=== PATIENT | female | born 1940 | race Two or more races ===

== ENCOUNTER 2018-12-05 12:33 | Emergency (ER) | payer MEDICARE, MEDICAID ==
[~2018-12-05] VITALS: Ht 152.4 cm; Wt 80.7 kg
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
--- NOTE | 2018-12-05 12:45 | NUR ---
DR RANDHAWA AT BEDSIDE
[2018-12-05] MEDS ORDERED: ONDANSETRON 4 MG TAB.RAPDIS PO ONE (13:00)
[2018-12-05] MEDS ORDERED: MORPHINE SULFATE INJ 2 MG/ML DISP.SYRIN IM ONE (13:00)
[2018-12-05] MEDS ORDERED: ONDANSETRON 4 MG TAB.RAPDIS ONE (13:01)
[2018-12-05] MEDS ORDERED: MORPHINE SULFATE INJ 4 MG/ML DISP.SYRIN ONE (13:01)
--- NOTE | 2018-12-05 13:53 | NUR ---
Patient discharged to home in stable condition. Written and verbal after care instructions given. Patient verbalizes understanding of instruction. Assisted to waaiting room. Pt will be picked-up by friend.
[2018-12-05 13:54] VITALS: BP 116/62
== END 2018-12-05 13:55 | disposition home or self-care (01) ==
LOC: ER 12:36
DX: M17.12 Unilateral primary osteoarthritis, left knee (principal); I10 Essential (primary) hypertension; F41.9 Anxiety disorder, unspecified; Z88.6 Allergy status to analgesic agent
CPT/HCPCS: 73564; 96372; 99283; J2270; Q0162

== ENCOUNTER 2020-03-22 10:07 | Inpatient (IN) | payer MEDICARE, OTHER ==
[2020-03-22] VITALS (11 sets, daily range): BP systolic 104–158; BP diastolic 29–75
[~2020-03-22] VITALS: Ht 152.4 cm; Wt 79.8 kg
[2020-03-22] MEDS ORDERED: OCTREOTIDE 100 MCG/ML VIAL ONE (10:29)
[2020-03-22] MEDS ORDERED: ONDANSETRON HCL/PF 4 MG/2 ML VIAL ONE (10:29)
[2020-03-22] MEDS ORDERED: PANTOPRAZOLE 40 MG VIAL ONE (10:29)
[2020-03-22] MEDS ORDERED: IV NS 0.9% 1,000 ML BAG IV ONE (10:30)
[2020-03-22] MEDS ORDERED: IV NS 0.9% 1,000 ML IV ONE (10:30)
[2020-03-22] MEDS ORDERED: ONDANSETRON HCL/PF 4 MG/2 ML VIAL IVP ONE (10:30)
[2020-03-22] MEDS ORDERED: OCTREOTIDE 50 MCG/ML AMPUL IV ONE (10:30)
[2020-03-22] MEDS ORDERED: PANTOPRAZOLE 40 MG VIAL IV ONE (10:30)
[2020-03-22 10:39] LABS: BASOPHILS % (AUTO) 0.1 % (0.0-2.0); HEMATOCRIT 32 % (33-45); HEMOGLOBIN 10.2 g/dL (11.5-14.8); LYMPHOCYTES # (AUTO) 2.3 /CMM (0.8-4.8); LYMPHOCYTES % (AUTO) 16.7 % (20.0-44.0); MEAN CORPUSCULAR HGB CONC 32 g/dl (31.0-36.0); MEAN CORPUSCULAR VOLUME 96 fL (82-100); MONOCYTES # (AUTO) 0.2 /CMM (0.1-1.30); MONOCYTES % (AUTO) 1.2 % (2.0-12.0); NEUTROPHILS # (AUTO) 11.4 /CMM (1.8-8.9); PLATELET COUNT (AUTO) 190 /CMM (150-450); RED BLOOD CELL COUNT(AUTO) 3.27 MIL/uL (4.0-5.2); WHITE BLOOD COUNT (AUTO) 13.9 K/uL (4.3-11.0)
--- NOTE | 2020-03-22 10:42 | NUR ---
BIB ra c/o nausea and vomiting bright red blood since this morning. On room air, breathing evenly and unlabored. connected to the monitor and pulse ox. kept comfortable, will continue to monitor accordingly.
[2020-03-22 10:44] LABS: CALCIUM, SERUM 8.2 mg/dL (8.5-10.1); CARBON DIOXIDE 26 mmol/L (21-32); CHLORIDE 105 mmol/L (98-107); CREATININE 1.6 mg/dL (0.6-1.3); GLUCOSE 235 mg/dL (74-106); POTASSIUM 4.1 mmol/L (3.5-5.1); SODIUM SERUM 142 mmol/L (136-145); UREA NITROGEN, BLOOD 44 mg/dL (7-18)
[2020-03-22 10:50] LABS: ALANINE AMINOTRANSFERASE 14 U/L (12-78); ALBUMIN 2.9 g/dL (3.4-5.0); ALKALINE PHOSPHATASE 43 U/L (46-116); ASPARTATE AMINOTRANSFERASE 15 U/L (15-37); BILIRUBIN,DIRECT 0.2 mg/dL (0.0-0.2); BILIRUBIN,TOTAL 0.5 mg/dL (0.2-1.0); LIPASE 124 U/L (73-393); TOTAL PROTEIN, SERUM 5.5 g/dL (6.4-8.2)
[2020-03-22] MEDS ORDERED: AMLO5TAB9 PO (10:59)
[2020-03-22] MEDS ORDERED: LINA290C PO (10:59)
[2020-03-22] MEDS ORDERED: LOSA100T31 PO (10:59)
[2020-03-22] MEDS ORDERED: ALLO300T2 PO (10:59)
[2020-03-22] MEDS ORDERED: LORA-259 PO (10:59)
[2020-03-22] MEDS ORDERED: CELE-85 PO (10:59)
[2020-03-22] MEDS ORDERED: ESCI20TA PO (10:59)
[2020-03-22] MEDS ORDERED: ROSU5TAB13 PO (10:59)
[2020-03-22] MEDS ORDERED: IV NS 0.9% 250 ML IV ONE (11:09)
[2020-03-22] MEDS ORDERED: IOHEXOL-300 100 ML VIAL IV ONE (11:09)
--- NOTE | 2020-03-22 11:09 | NUR ---
NURSING SUP GAVE ICU BED 253.
--- NOTE | 2020-03-22 11:09 | NUR ---
covid 19 testing collected and sent to lab
--- NOTE | 2020-03-22 11:15 | NUR ---
report given to Bonnie PARR for norman
[2020-03-22] MEDS ORDERED: Z GUARD REMEDY 2 OZ OINT TP PRN (11:30)
[2020-03-22] MEDS ORDERED: *INSULIN REGULAR(HUMULIN R)HUM 100 UNIT/ML VIAL SQ PRN (11:30)
[2020-03-22] MEDS ORDERED: MAG HYDROX/AL HYDROX/SIMETH 30 ML UDC PO PRN (11:30)
[2020-03-22] MEDS ORDERED: ACETAMINOPHEN 325 MG TABLET PO PRN (11:30)
[2020-03-22] MEDS ORDERED: DEXTROSE 50%-WATER 50 ML DISP.SYRIN IV PRN (11:30)
[2020-03-22] MEDS ORDERED: MAGNESIUM HYDROXIDE 30 ML UDC PO PRN (11:30)
--- NOTE | 2020-03-22 12:32 | NUR ---
wheeled patient via gurney accompanied by RN and emt in no distress. RN at bedside to assume care.
--- NOTE | 2020-03-22 12:57 | NUR ---
PT ARRIVED IN ICU AT 1230 VIA GURNEY, ACCOMPANIED BY WOOD INSPECTOR. PT WAS QUICKLY CLEANED UP OF DRIED BLOOD ON FACE, LEGS AND CHEST, HOME NIGHTGOWN WAS REMOVED AND HOSPITAL GOWN WAS PUT ON. CONSENTS WERE SIGNED FOR EGD AND PATIENT WAS TAKEN TO SURGERY AT 1257 BY OR STAFF INCLUDING CONCRETE TESTER.
--- NOTE | 2020-03-22 14:02 | NUR ---
PT RETURNED FROM SURGERY AT 1402. PT ALERT, RA, PT TALKING TO DAUGHTER ON PHONE
[2020-03-22] MEDS: IV NS 0.9% 1,000 ML IV PRN (14:29)
[2020-03-22] MEDS: HYDROCODONE/APAP 5/325MG TABLET PO PRN ×2 (14:58→19:44)
[2020-03-22] MEDS: BLOOD SUGAR DIAGNOSTIC 1 EACH STRIP VI SCH ×3 (15:04→21:04)
--- NOTE | 2020-03-22 19:30 | NUR ---
END OF SHIFT NOTE: NO BLEEDING NOTED ON THIS SHIFT. PT STARTED CLEAR LIQUID DIET FOR DINNER. PT CHECKED ON HOURLY AND PRN BY NURSING STAFF.
--- NOTE | 2020-03-22 20:56 | NUR ---
RN NOTE NOTED WITH ORDER FOR BLOOD TRANFUSION FROM ER. CLARIFIED WITH EDMUND DNP AND RELAYED CURRENT H/H AND EGD RESULT. PER DNP, DO NOT GIVE BLOOD TRANSFUSION. CALLED LAB AND SPOKE TO KIRAN WHO STATES THAT THEY WILL HOLD ONTO THE BLOOD FOR 72 HOURS
[2020-03-22] MEDS: PANTOPRAZOLE 40 MG VIAL IV SCH (21:04)
[2020-03-22] MEDS: LORAZEPAM 1 MG TABLET PO PRN (21:48)
[2020-03-23] VITALS (31 sets, daily range): BP systolic 87–142; BP diastolic 36–73
[2020-03-23] MEDS: IV NS 0.9% 1,000 ML IV PRN ×2 (02:17→14:59)
[2020-03-23] MEDS: HYDROCODONE/APAP 5/325MG TABLET PO PRN ×4 (02:22→20:29)
--- NOTE | 2020-03-23 04:00 | NUR ---
RN NOTE OFFERED PT COMPLETE BED BATH AND LINEN CHANGE. PT REFUSED AND STATED "NOT NOW, I AM SLEEPING." PT AGREED FOR PARTIAL LINEN CHANGE.
[2020-03-23 04:14] LABS: BASOPHILS % (AUTO) 0.1 % (0.0-2.0); HEMATOCRIT 24 % (33-45); HEMOGLOBIN 8.1 g/dL (11.5-14.8); LYMPHOCYTES # (AUTO) 2.1 /CMM (0.8-4.8); LYMPHOCYTES % (AUTO) 17.1 % (20.0-44.0); MEAN CORPUSCULAR HGB CONC 33 g/dl (31.0-36.0); MEAN CORPUSCULAR VOLUME 95 fL (82-100); MONOCYTES # (AUTO) 0.8 /CMM (0.1-1.30); MONOCYTES % (AUTO) 6.6 % (2.0-12.0); NEUTROPHILS # (AUTO) 9.2 /CMM (1.8-8.9); NEUTROPHILS % (AUTO) 76.2 % (43.0-81.0); PLATELET COUNT (AUTO) 146 /CMM (150-450); RED BLOOD CELL COUNT(AUTO) 2.56 MIL/uL (4.0-5.2); WHITE BLOOD COUNT (AUTO) 12.1 K/uL (4.3-11.0)
[2020-03-23 04:28] LABS: CALCIUM, SERUM 7.3 mg/dL (8.5-10.1); CREATININE 1.1 mg/dL (0.6-1.3); MAGNESIUM 2.3 mg/dL (1.8-2.4); PHOSPHORUS 3.4 mg/dL (2.5-4.9); POTASSIUM 4.4 mmol/L (3.5-5.1)
--- NOTE | 2020-03-23 06:41 | NUR ---
RN CLOSING NOTE NO ACUTE CHANGES OBSERVED OVERNIGHT. PT SLEEPING IN BED IN SEMI DIOP'S POSITION. RESPIRATIONS EVEN AND UNLABORED WHILE ON ROOM AIR. IVF FLUIDS RUNNING ORDERED. PENDING BIOPSY RESULT FROM EGD. CALL LIGHT WITHIN REACH, BED ALARM ON, SAFETY MEASURES IN PLACE, WILL ENDORSE TO MORNING RN FOR CONTINUATION OF CARE.
[2020-03-23] MEDS: BLOOD SUGAR DIAGNOSTIC 1 EACH STRIP VI SCH ×4 (07:31→21:56)
[2020-03-23] MEDS: PANTOPRAZOLE 40 MG VIAL IV SCH ×2 (08:32→20:29)
--- NOTE | 2020-03-23 09:44 | NUR ---
RN NOTE 0715: Received patient awake, A/Ox4. No active bleeding noted at this time. SR on the monitor. Room air. PIVs intact, IVF infusing as ordered. 0830: Helped patient to be in bed mach[place], noted with right rib pain, [place] given as ordered. 0900: Tolerated clear liquids diet well.
--- NOTE | 2020-03-23 13:04 | NUR ---
RN NOTE Spoke with KRISTY Lundberg [phone], and requested that if daughter from [place] may visit, CN asked and it's ok to visit. Dr. Schafer spoke with KRISTY and discussed POC. Addendum: 03/23/20 at 1313 by NGUYỄN STRANGE RN disregard note, for other patient
--- NOTE | 2020-03-23 17:50 | NUR ---
RN NOTE Transferred patient to [address] [place] [id number], using ACLS protocol. No any significant changes during the transfer. Kept clean, warm and dry. Needs attended. No bleeding noted. Tolerated diet. Endorsed to Lillian PARR for ARISTIDES.
--- NOTE | 2020-03-23 18:05 | NUR ---
TRANSFERRED FROM ICU Report received from Corey PARR, patient is A/O x4, showing no signs of acute distress or SOB, stable on RA. IV line in the RAC #18g is running NS @ 75mls/hour. Vital signs 102/72 HR 80 T98.1 SpO2 96% on RA. Bed is in lowest position, side rails x3 in upright position, fall safety and aspiration precautions enforced. Will endorse to overnight houseperson.
--- NOTE | 2020-03-23 19:25 | NUR ---
SELLING MANAGER OPENING NOTES PATIENT AWAKE IN BED. A/OX4; ABLE TO VERBALIZE NEEDS. TELE MONITOR READING NSR, HEART RATE 79. ON RA. NO C/O SOB OR PAIN; BREATHING IS EVEN AND UNLABORED. PER DAY SHIFT RN, PATIENT WAS TRANSFERRED FROM ICU. IV PRESENT ON RIGHT AC, SIZE 18, INTACT & PATENT, HEP LOCKED. IV PRESENT ON LEFT AC, SIZE 18, INTACT & PATENT WITH NS RUNNING AT 75 ML/HR. SAFETY MEASURES IN PLACE AND PATIENT'S NEEDS MET. BED LOCKED, SIDE RAILS X2, HOB ELEVATED, CALL LIGHT WITHIN REACH. WILL CONTINUE TO MONITOR.
[2020-03-23] MEDS: LORAZEPAM 1 MG TABLET PO PRN (22:34)
[2020-03-24] VITALS (7 sets, daily range): BP systolic 106–141; BP diastolic 43–64
[2020-03-24] MEDS: HYDROCODONE/APAP 5/325MG TABLET PO PRN ×4 (02:50→23:17)
[2020-03-24] MEDS: IV NS 0.9% 1,000 ML IV PRN (05:44)
[2020-03-24] MEDS: BLOOD SUGAR DIAGNOSTIC 1 EACH STRIP VI SCH ×4 (06:47→22:08)
--- NOTE | 2020-03-24 06:59 | NUR ---
BUTTON FACING MACHINE OPERATOR CLOSING NOTES PATIENT SLEEPING, EASY TO AWAKEN. A/OX4. TELE MONITOR READING NSR, HEART RATE 65. ON RA. NO S/S SOB OR PAIN NOTED; BREATHING IS EVEN AND UNLABORED. IV PRESENT ON RIGHT AC, SIZE 18, INTACT & PATENT WITH NS RUNNING AT 75 ML/HR. IV PRESENT ON LEFT AC, SIZE 18, INTACT & PATENT, HEP LOCKED. SAFETY MEASURES IN PLACE AND PATIENT'S NEEDS MET. BED LOCKED, SIDE RAILS X2, HOB ELEVATED, CALL LIGHT WITHIN REACH. ENDORSED TO DAY SHIFT RN PLAN OF CARE.
--- NOTE | 2020-03-24 07:34 | NUR ---
SUPERVISOR FRYER [employer]ARM NOTES PATIENT RECEIVED IN BED SLEEPING, EASILY AWAKEN BY NAME, ALERT AND ORIENTED X 4. ON ROOM AIR WITH NO SIGNS OF RESPIRATORY DISTRESS, NO SOB NOTED, AND WITH EVEN NON-LABORED BREATHING AT THIS TIME. ON JACKERMAN, NORMAL SINUS RHYTHM, 70'S. PATIENT PRESENTS WITH NO PAIN OR DISCOMFORT AT THIS TIME. SKIN WARM AND DRY TO TOUCH. IV ACCESS INTACT AND PATENT INFUSING NORMAL SALINE AT 75ml/hr. SAFETY PRECAUTIONS IMPLEMENTED WITH BED LOCKED, BED IN THE LOWEST POSITION, BED ALARM ON, BILATERAL SIDE RAILS UP, AND CALL LIGHT WITHIN EASY REACH OF PATIENT. WILL CONTINUE TO MONITOR PATIENT.
[2020-03-24] MEDS: PANTOPRAZOLE 40 MG VIAL IV SCH ×2 (08:41→21:28)
[2020-03-24 10:58] LABS: BASOPHILS # (AUTO) 0.3 /CMM (0.0-0.2); BASOPHILS % (AUTO) 3.9 % (0.0-2.0); EOSINOPHILS % (AUTO) 3.7 % (0.0-6.0); HEMATOCRIT 26 % (33-45); HEMOGLOBIN 8.4 g/dL (11.5-14.8); LYMPHOCYTES # (AUTO) 1.2 /CMM (0.8-4.8); LYMPHOCYTES % (AUTO) 15.2 % (20.0-44.0); MEAN CORPUSCULAR HGB CONC 33 g/dl (31.0-36.0); MEAN CORPUSCULAR VOLUME 95 fL (82-100); MONOCYTES # (AUTO) 0.5 /CMM (0.1-1.30); MONOCYTES % (AUTO) 5.9 % (2.0-12.0); NEUTROPHILS # (AUTO) 5.6 /CMM (1.8-8.9); NEUTROPHILS % (AUTO) 71.3 % (43.0-81.0); PLATELET COUNT (AUTO) 135 /CMM (150-450); WHITE BLOOD COUNT (AUTO) 7.9 K/uL (4.3-11.0)
[2020-03-24 11:23] LABS: ALBUMIN 2.6 g/dL (3.4-5.0); BILIRUBIN,TOTAL 0.3 mg/dL (0.2-1.0); CALCIUM, SERUM 7.2 mg/dL (8.5-10.1); CREATININE 0.8 mg/dL (0.6-1.3); PHOSPHORUS 1.8 mg/dL (2.5-4.9); POTASSIUM 3.3 mmol/L (3.5-5.1)
--- NOTE | 2020-03-24 12:30 | NUR ---
MS RN NOTES PATIENT'S POTASSIUM LEVEL 3.3 AND PHOSPHORUS LEVEL 1.8, REPORTED TO DR LESTER, DR. LESTER ORDERED POTASSIUM PHOSPHATE 15mmol X1, WILL CARRY OUT ORDER AND CONTINUE TO MONITOR PATIENT.
[2020-03-24] MEDS ORDERED: POTASSIUM PHOSPHATE MM 15 MMOL in IV NS 0.9% 250 ML IV ONE (13:00)
[2020-03-24] MEDS: POTASSIUM PHOSPHATE MM 7.5 MMOL in IV NS 0.9% 100 ML IV SCH ×2 (14:50→17:46)
--- NOTE | 2020-03-24 18:26 | NUR ---
MS RN NOTES PATIENT IN BED RESTING COMFORTABLY, ALERT AND ORIENTED X 4. ON ROOM AIR WITH NO SIGNS OF RESPIRATORY DISTRESS, NO SOB NOTED, AND WITH EVEN NON-LABORED BREATHING AT THIS TIME. PATIENT PRESENTS WITH NO PAIN OR DISCOMFORT AT THIS TIME. MET ALL OF PATIENT'S NEEDS. SKIN KEPT CLEAN, WARM AND DRY TO TOUCH. IV ACCESS REMAIN INTACT AND PATENT. SAFETY PRECAUTIONS IMPLEMENTED WITH BED LOCKED, BED IN THE LOWEST POSITION, BED ALARM ON, BILATERAL SIDE RAILS UP, AND CALL LIGHT WITHIN EASY REACH OF PATIENT. WILL ENDORSE PLAN OF CARE TO UPCOMING NURSE.
--- NOTE | 2020-03-24 19:38 | NUR ---
MS RN NOTES RECEIVED PATIENT IN BED RESTING COMFORTABLY, ALERT AND ORIENTED X 4. ON ROOM AIR WITH NO SIGNS AND SYMPTOMS OF RESPIRATORY OR CARDIAC DISTRESS, NO SOB NOTED, AND NON-LABORED BREATHING AT THIS TIME. PATIENT PRESENTS WITH NO PAIN OR DISCOMFORT AT THIS TIME. SKIN KEPT CLEAN, WARM AND DRY TO TOUCH. IV ACCESS REMAIN INTACT AND PATENT. SAFETY PRECAUTIONS IN PLACE, BED IN LOW LOCKED POSITION, BED ALARM ON, BILATERAL SIDE RAILS UP, AND CALL LIGHT WITHIN EASY.ALL NEEDS ANTICIPATED. WILL CONTINUE TO MONITOR ACCORDINGLY.
[2020-03-24] MEDS: ONDANSETRON HCL/PF 4 MG/2 ML VIAL IVP PRN (19:46)
[2020-03-25] MEDS: HYDROCODONE/APAP 5/325MG TABLET PO PRN ×3 (04:14→21:47)
--- NOTE | 2020-03-25 06:53 | NUR ---
MS RN NOTES ALL NEEDS ATTENDED AND MET, ABLE TO REST AND SLEPT AT INTERVALS. PATIENT IN BED RESTING COMFORTABLY, ALERT AND ORIENTED X 4. ON ROOM AIR WITH NO SIGNS AND SYMPTOMS OF RESPIRATORY OR CARDIAC DISTRESS, NO SOB NOTED, AND NON-LABORED BREATHING AT THIS TIME. PATIENT PRESENTS WITH NO PAIN OR DISCOMFORT AT THIS TIME. SKIN KEPT CLEAN, WARM AND DRY TO TOUCH. IV ACCESS REMAIN INTACT AND PATENT. SAFETY PRECAUTIONS IN PLACE, BED IN LOW LOCKED POSITION, BED ALARM ON, BILATERAL SIDE RAILS UP, AND CALL LIGHT WITHIN EASY.ALL NEEDS ANTICIPATED. WILL ENDORSE TO AM NURSE FOR CONTINUITY OF CARE.
[2020-03-25 07:35] LABS: BASOPHILS % (AUTO) 0.6 % (0.0-2.0); EOSINOPHILS % (AUTO) 4.6 % (0.0-6.0); HEMATOCRIT 26 % (33-45); HEMOGLOBIN 8.5 g/dL (11.5-14.8); LYMPHOCYTES # (AUTO) 2.1 /CMM (0.8-4.8); LYMPHOCYTES % (AUTO) 26.4 % (20.0-44.0); MEAN CORPUSCULAR HGB CONC 33 g/dl (31.0-36.0); MEAN CORPUSCULAR VOLUME 96 fL (82-100); MONOCYTES # (AUTO) 0.7 /CMM (0.1-1.30); MONOCYTES % (AUTO) 8.7 % (2.0-12.0); NEUTROPHILS # (AUTO) 4.8 /CMM (1.8-8.9); NEUTROPHILS % (AUTO) 59.7 % (43.0-81.0); PLATELET COUNT (AUTO) 131 /CMM (150-450); RED BLOOD CELL COUNT(AUTO) 2.71 MIL/uL (4.0-5.2)
[2020-03-25] MEDS: BLOOD SUGAR DIAGNOSTIC 1 EACH STRIP VI SCH ×4 (07:50→21:29)
[2020-03-25 08:00] VITALS: BP 148/83
--- NOTE | 2020-03-25 08:04 | NUR ---
MS RN OPEN NOTES PATIENT IS SLEEPING IN BED. WITH NO SIGNS OF DISTRESS AND NO SOB IN ROOM AIR. IV R AC #18G AND L AC #18G SL INTACT. SAFETY MEASURES ARE BEING APPLIED, BED IS IN LOW POSITION AND LOCKED, SIDE RAILS UP X 2 FOR SAFETY. CALL LIGHT WITHIN REACH. WILL CONTINUE TO MONITOR.
[2020-03-25] MEDS: PANTOPRAZOLE 40 MG VIAL IV SCH ×2 (08:17→21:29)
[2020-03-25 08:46] LABS: CALCIUM, SERUM 7.3 mg/dL (8.5-10.1); CREATININE 0.8 mg/dL (0.6-1.3); POTASSIUM 3.8 mmol/L (3.5-5.1)
[2020-03-25] MEDS: ONDANSETRON HCL/PF 4 MG/2 ML VIAL IVP PRN (08:50)
[2020-03-25] MEDS: INSULIN REGULAR, HUMAN 100 UNIT/ML 3 ML VIAL SQ PRN (11:21)
--- NOTE | 2020-03-25 11:39 | NUR ---
GLUCOSE CHECK 67 GAVE APPLE JUICE, WILL RE-CHECK ACCUCHECK AFTER AN HOUR. WILL CONTINUE TO MONITOR.
--- NOTE | 2020-03-25 12:21 | NUR ---
ACCUCHECK IS 119.
[2020-03-25 16:00] VITALS: BP 128/64
--- NOTE | 2020-03-25 18:28 | NUR ---
MS RN CLOSED NOTES PATIENT IS A/O X 4 ALERT AND ORIENTED. WITH NO SIGNS OF DISTRESS AND NO SOB IN ROOM AIR. IV R AC #18G AND L AC #18G SL INTACT. PATIENT REMAINED STABLE THROUGH OUT SHIFT. PATIENT KEPT CLEAN AND DRY. ALL NEEDS, CARE, TREATMENT AND MEDICATIONS ADMINISTERED ANTICIPATED PER ORDER. SAFETY MEASURES ARE BEING APPLIED, BED IS IN LOW POSITION AND LOCKED, SIDE RAILS UP X 2 FOR SAFETY. CALL LIGHT WITHIN REACH. WILL ENDORSE TO THE NEXT CRANE MAN.
--- NOTE | 2020-03-25 19:20 | NUR ---
RN OPENING NOTES Received patient a/O x4, awake on bed. With complaints of pain upon movement. On RA, no s/sx of distress noted at this time. Kept on bed clean, dry and comfortable. Call light within easy reach. Will continue to monitor accordingly.
[2020-03-25 20:00] VITALS: BP 110/50
--- NOTE | 2020-03-26 07:11 | NUR ---
RN CLOSING NOTES Pt asleep on bed, on RA. No s/sx of discomfort/distress noted at this time. PRN meds given for pain as ordered, noted effective. No new complaints, no new unusualities noted. All nursing needs attended, due meds given as ordered. For PT eval today. Endorsed to the next shift. Endorsed.
[2020-03-26] MEDS: BLOOD SUGAR DIAGNOSTIC 1 EACH STRIP VI SCH ×2 (07:31→12:24)
[2020-03-26 08:00] VITALS: BP 130/64
[2020-03-26] MEDS: PANTOPRAZOLE 40 MG VIAL IV SCH (08:10)
[2020-03-26] MEDS: HYDROCODONE/APAP 5/325MG TABLET PO PRN ×2 (08:11→13:19)
--- NOTE | 2020-03-26 08:11 | NUR ---
RN NOTES RECEIVED PATIENT IN THE BED A/O X3, NO ACUTE RESPIRATORY DISTRESS, WAS COMPLAINING OF PAIN GENERALIZED 02/24 PER PATIENT REQUEST, PATIENT USING BEDPAN , FALL PRECAUTION, V/S TAKEN STABLE, ADMINISTERED SCHEDULED MEDICATION, AND NARCO 5/325 MG PO PRN . CALL LIGHT WITHIN TO REACH. CONTINUED MONITORING.
[2020-03-26] MEDS ORDERED: HYDR-4384 PO (08:34)
[2020-03-26] MEDS: INSULIN REGULAR, HUMAN 100 UNIT/ML 3 ML VIAL SQ PRN (12:25)
--- NOTE | 2020-03-26 13:19 | NUR ---
rn notes administered narco 5/325 mg po porn for generalized pain 01/25 per patient request. v/s taken bp 140/64, p-72, r-19.
[2020-03-26 13:25] VITALS: BP 140/64
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
== END 2020-03-26 13:30 | DRG 377 ==
LOC: ER 10:13 → ICU 11:20 → TELE 03-23 17:41 → MED 03-24 11:38
PROVIDERS: ADMIT Internal Medicine; ATTEND Internal Medicine
PROC: 0DB68ZX Excision of Stomach, Via Natural or Artificial Opening Endoscopic, Diagnostic (ICD-10-PCS; principal; 2020-03-22)
DX: K25.4 Chronic or unspecified gastric ulcer with hemorrhage (principal); N17.0 Acute kidney failure with tubular necrosis; S22.31XA Fracture of one rib, right side, initial encounter for closed fracture; J98.11 Atelectasis; F32.9 Major depressive disorder, single episode, unspecified; F41.9 Anxiety disorder, unspecified; I10 Essential (primary) hypertension; M19.90 Unspecified osteoarthritis, unspecified site; M10.9 Gout, unspecified; W19.XXXA Unspecified fall, initial encounter; Z79.899 Other long term (current) drug therapy; Y92.009 Unspecified place in unspecified non-institutional (private) residence as the place of occurrence of the external cause; T39.395A Adverse effect of other nonsteroidal anti-inflammatory drugs [NSAID], initial encounter; T44.5X5A Adverse effect of predominantly beta-adrenoreceptor agonists, initial encounter; M81.0 Age-related osteoporosis without current pathological fracture; M43.16 Spondylolisthesis, lumbar region; N28.1 Cyst of kidney, acquired; Z79.1 Long term (current) use of non-steroidal anti-inflammatories (NSAID); Z88.6 Allergy status to analgesic agent; E78.5 Hyperlipidemia, unspecified; D64.9 Anemia, unspecified; I27.21 Secondary pulmonary arterial hypertension; K44.9 Diaphragmatic hernia without obstruction or gangrene; K57.30 Diverticulosis of large intestine without perforation or abscess without bleeding
CPT/HCPCS: 36415; 71045-TC; 71260-TC; 80048-TC; 80053-TC; 80076-TC; 82962-TC; 83690-TC; 83735-TC; 84100-TC; 85025-TC; 85730-TC; 86850-TC; 86921-TC; 87081-TC; 97116-TC; 97530-TC; C9113; G0378; J1815; J2354; J2405; J2704; J3490; J7030; J7050; Q9967

== ENCOUNTER 2020-11-02 18:43 | Emergency (ER) | payer MEDICARE, OTHER ==
[~2020-11-02] VITALS: Ht 152.4 cm; Wt 72.6 kg
[~2020-11-02 18:43] MED LIST: ALLO300T2 PO; AMLO-212 PO; CELE-85 PO; ESCI20TA PO; HYDR-4384 PO; LINA290C PO; LORA-259 PO; LOSA100T31 PO; ROSU5TAB13 PO
[2020-11-02] MEDS ORDERED: PANT40TA49 PO (18:48)
[2020-11-02] MEDS ORDERED: FINA5TAB11 PO (18:48)
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
[2020-11-02] MEDS ORDERED: TDAP [DIPH/PERTUSSIS/TET] 0.5 ML VIAL IM ONE ×2 (22:02→22:30)
--- NOTE | 2020-11-02 22:12 | NUR ---
Patient discharged to home in stable condition. Written and verbal after care instructions given. Patient verbalizes understanding of instruction. Pt ambulatory with a steady gait
[2020-11-02 22:14] VITALS: BP 135/86
== END 2020-11-02 22:14 | disposition home or self-care (01) ==
LOC: ER 18:49
DX: S01.112A Laceration without foreign body of left eyelid and periocular area, initial encounter (principal); M25.531 Pain in right wrist; M25.532 Pain in left wrist; M25.511 Pain in right shoulder; I10 Essential (primary) hypertension; M10.9 Gout, unspecified; F41.9 Anxiety disorder, unspecified; Z88.6 Allergy status to analgesic agent; Z79.899 Other long term (current) drug therapy; W01.0XXA Fall on same level from slipping, tripping and stumbling without subsequent striking against object, initial encounter; Y93.89 Activity, other specified; Y92.89 Other specified places as the place of occurrence of the external cause; Y99.8 Other external cause status
CPT/HCPCS: 12011; 70450; 70486; 71046; 72125; 73030; 73110 ×2; 99285; A6403; 90715

== ENCOUNTER 2020-11-06 11:47 | Emergency (ER) | payer MEDICARE, OTHER ==
[~2020-11-06] VITALS: Ht 152.4 cm; Wt 72.6 kg
[~2020-11-06 11:47] MED LIST changes: -CELE-85 PO; +FINA5TAB11 PO; +PANT40TA49 PO
[2020-11-06 11:52] VITALS: BP 153/85
== END 2020-11-06 13:27 | disposition home or self-care (01) ==
LOC: ER 11:47
DX: S01.112A Laceration without foreign body of left eyelid and periocular area, initial encounter (principal); S20.212A Contusion of left front wall of thorax, initial encounter; I10 Essential (primary) hypertension; F41.9 Anxiety disorder, unspecified; M10.9 Gout, unspecified; Z88.6 Allergy status to analgesic agent; Z79.899 Other long term (current) drug therapy; X58.XXXA Exposure to other specified factors, initial encounter; Y93.89 Activity, other specified; Y92.89 Other specified places as the place of occurrence of the external cause; Y99.8 Other external cause status
CPT/HCPCS: 71100-TC

== ENCOUNTER 2022-05-29 13:38 | Emergency (ER) | payer MEDICARE, OTHER ==
[~2022-05-29] VITALS: Ht 152.4 cm; Wt 76.7 kg
[2022-05-29 13:48] VITALS: BP 122/62
--- NOTE | 2022-05-29 13:52 | NUR ---
URINE SAMPLE PROVIDED BY STERLING
[2022-05-29 15:25] LABS: BASOPHILS % (AUTO) 0.3 % (0.0-2.0); HEMATOCRIT 32 % (33-45); HEMOGLOBIN 10.4 g/dL (11.5-14.8); LYMPHOCYTES # (AUTO) 4.3 K/uL (0.8-4.8); LYMPHOCYTES % (AUTO) 50.9 % (20.0-44.0); MEAN CORPUSCULAR HGB CONC 33 g/dl (31.0-36.0); MEAN CORPUSCULAR VOLUME 98 fL (82-100); MONOCYTES # (AUTO) 0.4 K/uL (0.1-1.30); MONOCYTES % (AUTO) 4.7 % (2.0-12.0); NEUTROPHILS # (AUTO) 3.6 K/uL (1.8-8.9); NEUTROPHILS % (AUTO) 42.1 % (43.0-81.0); PLATELET COUNT (AUTO) 163 K/uL (150-450); RED BLOOD CELL COUNT(AUTO) 3.25 MIL/uL (4.0-5.2); WHITE BLOOD COUNT (AUTO) 8.5 K/uL (4.3-11.0)
[2022-05-29 15:38] LABS: CALCIUM, SERUM 8.7 mg/dL (8.5-10.1); CARBON DIOXIDE 31 mmol/L (21-32); CHLORIDE 102 mmol/L (98-107); CREATININE 1.4 mg/dL (0.6-1.3); GLUCOSE 81 mg/dL (74-106); POTASSIUM 3.5 mmol/L (3.5-5.1); SODIUM SERUM 138 mmol/L (136-145); UREA NITROGEN, BLOOD 25 mg/dL (7-18)
[2022-05-29 17:58] LABS: BILIRUBIN,URINE NEGATIVE (NEGATIVE); COLOR,URINE YELLOW (YELLOW); LEUKOCYTE ESTERASE ,URINE NEGATIVE (NEGATIVE); NITRITE, URINE NEGATIVE (NEGATIVE); PROTEIN,URINE NEGATIVE (NEGATIVE); UGLUCOSE NEGATIVE (NEGATIVE); UROBILINOGEN,URINE 0.2 EU/dL (0.2)
[2022-05-29 18:15] LABS: BACTERIA,URINE Few /HPF (None Seen); RBC,URINE 0-2 /HPF (0-2); SQUAMOUS EPITHELIAL CELL,UR Few /HPF (None Seen); WBC,URINE NONE SEEN /HPF (0-3)
--- NOTE | 2022-05-29 18:24 | NUR ---
Patient discharged to home in stable condition. Written and verbal after care instructions given. Patient verbalizes understanding of instruction.
== END 2022-05-29 18:23 | disposition home or self-care (01) ==
LOC: ER 15:03
DX: R31.9 Hematuria, unspecified (principal); I10 Essential (primary) hypertension; F41.9 Anxiety disorder, unspecified; Z88.8 Allergy status to other drugs, medicaments and biological substances; Z79.899 Other long term (current) drug therapy
CPT/HCPCS: 36415; 80048-TC; 81001; 85025-TC; 87086-TC